=== PATIENT | male | born 1995 | race African-American/Black ===

== ENCOUNTER 2017-05-16 07:45 | Emergency (ER) | payer OTHER ==
[~2017-05-16] VITALS: Ht 177.8 cm; Wt 70.0 kg
[2017-05-16 07:51] VITALS: BP 130/66; PULSE 73; RESP 16; TEMP 98.3; O2SAT 100
--- NOTE | 2017-05-16 08:14 | PD ---
HPI Chief Complaint: Lump, Cyst, Hernia Time Seen by Provider: 07:59 Travel History International Travel<30 days: No Contact w/Intl Traveler<30days: No Traveled to known affect area: No History of Present Illness HPI 21-year-old -English male presents emergency department with recurrent nontender hernia to the left inguinal region. Patient states he has had approximately 3 years. He states it has gotten a little bigger in the last few months. He denies pain, and has always been able to reduce it without difficulty. He has noticed that it is worse with heavy lifting. Currently is asymptomatic. He denies testicular pain, or pain into the leg. He denies changes in urine, Or difficulty having sex. He currently has no insurance, but felt he should have it checked out. He has no known drug allergies. [facility] Social History Alcohol Use: Yes Tobacco Use: No Substance Use: No Allergies-Medications (Allergen,Severity, Reaction): Coded Allergies: No Known Allergies (Unverified , 05/16/17) Review of Systems Except as stated in HPI: all other systems reviewed are Neg General / Constitutional: No: Fever Eyes: No: Visual changes HENT: No: Headaches Cardiovascular: No: Chest Pain or Discomfort Respiratory: No: Shortness of Breath Gastrointestinal: Positive: Other (Hernia. See present illness.), No: Abdominal Pain Genitourinary: No: Dysuria Musculoskeletal: No: Pain Skin: No Rash Neurologic: No: Weakness Psychiatric: No: Depression Endocrine: No: Polydipsia Hematologic/Lymphatic: No: Easy Bruising Physical Exam Narrative GENERAL: Patient is in no acute distress SKIN: Warm and dry. Normal color. Normal turgor. No rash. HEAD: Atraumatic. Normocephalic. EYES: Pupils equal and round. No scleral icterus. No injection or drainage. ENT: No nasal bleeding or discharge. Mucous membranes pink and moist. NECK: Trachea midline. No JVD. CARDIOVASCULAR: Regular rate and rhythm. RESPIRATORY: No accessory muscle use. Clear to auscultation. Breath sounds equal bilaterally. GASTROINTESTINAL: Abdomen soft, non-tender, nondistended. Hepatic and splenic margins not palpable. Patient has obvious left-sided inguinal hernia which is nontender and reducible without difficulty. It does not extend into the scrotum. He has no testicular pain. MUSCULOSKELETAL: Extremities without clubbing, cyanosis, or edema. No obvious deformities. NEUROLOGICAL: Awake and alert. No obvious cranial nerve deficits. Motor grossly within normal limits. Five out of 5 muscle strength in the arms and legs. Normal speech. PSYCHIATRIC: Appropriate mood and affect; insight and judgment normal. Data Data Last Documented VS Vital Signs Date Time Temp Pulse Resp B/P (MAP) Pulse Ox O2 Delivery O2 Flow Rate FiO2 05/16/17 07:51 98.3 73 16 130/66 (87) 100 MDM Medical Decision Making Medical Screen Exam Complete: Yes Emergency Medical Condition: No Differential Diagnosis Left inguinal hernia. Need for surgery. Medical clearance. Narrative Course A medical screening exam was performed: At the time of evaluation the presenting medical condition was determined not to be of an emergent nature. The patient was given the option of receiving additional care, but declined. Patient was given options for additional community resources from which to obtain care. The Patient Has Been advised to seek medical attention for their presenting complaint. The patient has been advised to return to the ER at any time if an emergent condition develops. Condition: Stable Johnnie Carter May 16, 2017 08:14
== END 2017-05-16 09:11 | disposition left against medical advice (07) ==
LOC: NEPD 07:45
DX: K40.91 Unilateral inguinal hernia, without obstruction or gangrene, recurrent (principal)
CPT/HCPCS: 99281

== ENCOUNTER 2017-05-20 21:28 | Emergency (ER) | payer OTHER ==
[~2017-05-20] VITALS: Ht 177.8 cm; Wt 72.0 kg
[2017-05-20 22:27] VITALS: BP 142/65; PULSE 91; RESP 16; TEMP 98.5; O2SAT 100
[2017-05-21] MEDS ORDERED: IBUP1TAB7 PO (09:18)
[2017-05-21] MEDS ORDERED: MAPA500T13 PO (09:18)
[2017-05-21] MEDS ORDERED: CYCL10TA PO (09:18)
[2017-05-21] MEDS ORDERED: CIPR-9 PO (10:28)
== END 2017-05-20 23:59 | disposition left against medical advice (07) ==
LOC: NED 21:28
DX: Z53.21 Procedure and treatment not carried out due to patient leaving prior to being seen by health care provider (principal)
CPT/HCPCS: 99281

== ENCOUNTER 2017-05-21 07:42 | Emergency (ER) | payer OTHER ==
[~2017-05-21] VITALS: Ht 177.8 cm; Wt 74.0 kg
[2017-05-21 07:48] VITALS: BP 120/62; PULSE 72; RESP 16; TEMP 98.4; O2SAT 100
[2017-05-21] MEDS ORDERED: KETOROLAC TROMETHAMINE 60 MG/2 ML (IM) VIAL IM ONE (08:00)
[2017-05-21] MEDS ORDERED: ORPHENADRINE INJ 60 MG/2 ML AMP IM ONE (08:00)
--- NOTE | 2017-05-21 08:05 | PD ---
HPI Chief Complaint: Back/ Neck Pain or Injury Time Seen by Provider: 07:54 Travel History International Travel<30 days: No Contact w/Intl Traveler<30days: No Traveled to known affect area: No History of Present Illness HPI 21-year-old male presents emergency department with worsening lower back pain for the past 2 days. 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 Pain is progressively worsened over the past 24 hours. It is spasmodic in nature, with reported pain down both legs if he walks too long. He denies fever, chills, cough, nausea vomiting or diarrhea. Patient denies urinary symptoms. Patient has not tried taking anything for it or using heat or ice. Pain is currently 8 out of 10 and worse with movement. He has no known drug allergies PFSH Past Medical History Diminished Hearing: No Social History Alcohol Use: No Tobacco Use: Yes Substance Use: No Allergies-Medications (Allergen,Severity, Reaction): Coded Allergies: No Known Allergies (Unverified , 05/21/17) Reported Meds & Prescriptions Reported Meds & Active Scripts Active Mapap Extra Strength (Acetaminophen) 500 Mg Tab 1,000 Mg PO Q6-8HRS PRN Flexeril (Cyclobenzaprine HCl) 10 Mg Tab 10 Mg PO TID Ibuprofen 800 Mg Tab 800 Mg PO Q8H PRN Review of Systems Except as stated in HPI: all other systems reviewed are Neg General / Constitutional: No: Fever Eyes: No: Visual changes HENT: No: Headaches Cardiovascular: No: Chest Pain or Discomfort Respiratory: No: Shortness of Breath Gastrointestinal: No: Abdominal Pain Genitourinary: No: Dysuria Musculoskeletal: Positive: Myalgias, Limited ROM, Pain (See history of present illness) Skin: No Rash Neurologic: No: Weakness Psychiatric: No: Depression Endocrine: No: Polydipsia Hematologic/Lymphatic: No: Easy Bruising Physical Exam Narrative GENERAL: Patient appears in mild to moderate distress. He is ambulatory to the room SKIN: Warm and dry. Normal color. Normal turgor. No rash HEAD: Atraumatic. Normocephalic. EYES: Pupils equal and round. No scleral icterus. No injection or drainage. ENT: No nasal bleeding or discharge. Mucous membranes pink and moist. Pharynx is clear. Airways patent. NECK: Trachea midline. Supple and nontender. CARDIOVASCULAR: Regular rate and rhythm. RESPIRATORY: No accessory muscle use. Clear to auscultation. Breath sounds equal bilaterally. GASTROINTESTINAL: Abdomen soft, non-tender, nondistended. Hepatic and splenic margins not palpable. Patient is a known right sided inguinal hernia which is reducible per MUSCULOSKELETAL: Extremities without clubbing, cyanosis, or edema. No obvious deformities. Patient has palpable muscle spasms along the lumbar spine without specific bony tenderness or step-off. Palpation of the soft tissues of the lumbar spine reproduce symptoms. Patient has negative straight leg raise pain bilaterally. Deep tendon reflexes are intact bilaterally. NEUROLOGICAL: Awake and alert. No obvious cranial nerve deficits. Motor grossly within normal limits. Five out of 5 muscle strength in the arms and legs. Normal speech. PSYCHIATRIC: Appropriate mood and affect; insight and judgment normal. Data Data Last Documented VS Vital Signs Date Time Temp Pulse Resp B/P (MAP) Pulse Ox O2 Delivery O2 Flow Rate FiO2 05/21/17 07:48 98.4 72 16 120/62 (81) 100 Orders Orders Orphenadrine Inj (Norflex Inj) (05/21/17 08:00) Ketorolac Inj (Toradol Inj) (05/21/17 08:00) Spine, Lumbar Comp W/Obliq (05/21/17 07:59) Urinalysis - C+S If Indicated (05/21/17 07:59) Urine Culture (05/21/17 10:00) Labs Laboratory Tests Test 05/21/17 10:00 Urine Color YELLOW Urine Turbidity CLEAR Urine pH 6.5 Urine Specific [place] 1.030 Urine Protein 30 mg/dL Urine Glucose (UA) NEG mg/dL Urine Ketones NEG mg/dL Urine Occult Blood NEG Urine Nitrite NEG Urine Bilirubin NEG Urine Urobilinogen LESS THAN 2.0 MG/DL Urine Leukocyte Esterase SMALL Urine RBC 1 /hpf Urine WBC 8 /hpf Urine Squamous Epithelial Cells <1 /hpf Urine Mucus FEW /lpf Microscopic Urinalysis Comment CULTURE INDICATED MDM Medical Decision Making Medical Screen Exam Complete: Yes Emergency Medical Condition: Yes Medical Record Reviewed: Yes Differential Diagnosis Lumbago. Muscle spasm. Sciatica. Narrative Course Urinalysis is obtained. X-rays of the lumbar spine ordered. Patient is given 60 mg Norflex IM as well as 60 mg Toradol IM. X-ray show: 1. Mild disc space narrowing L5-S1. 2. Otherwise, unremarkable exam for patient's age. Urinalysis showed probable urinary tract infection and urine culture is placed. Patient is treated with ciprofloxacin 500 mg twice daily for 10 days Patient also given ibuprofen 800 mg 3 times daily #60. Patient also given Mapap 500 mg 2 tabs every 6 hours as needed #60. Patient also given Flexeril 10 mg up to 3 times daily #15 Work note was given for the next 2 days. Patient should follow-up if symptoms do not improve or worsen the next several days. Diagnosis Primary Impression: Lumbago with sciatica, unspecified side Qualified Codes: M54.42 - Lumbago with sciatica, left side; M54.41 - Lumbago with sciatica, right side Referrals: [facility] Patient Instructions: General Instructions Departure Forms: Work Release Enter return to work date: May 24, 2017 Additional Instructions: Patient is given 60 mg Norflex IM as well as 60 mg Toradol IM. X-ray show: 1. Mild disc space narrowing L5-S1. 2. Otherwise, unremarkable exam for patient's age. Urinalysis showed probable urinary tract infection and urine culture is placed. Patient is treated with ciprofloxacin 500 mg twice daily for 10 days Patient also given ibuprofen 800 mg 3 times daily #60. Patient also given Mapap 500 mg 2 tabs every 6 hours as needed #60. Patient also given Flexeril 10 mg up to 3 times daily #15 Work note was given for the next 2 days. Patient should follow-up if symptoms do not improve or worsen the next several days. Med/Other Pt SpecificInfo: Prescription(s) given Scripts Ciprofloxacin (Cipro) 500 Mg Tab 500 MG PO BID for Infection for 10 Days, #20 TAB 0 Refills Prov: Garry Romeo MD 05/21/17 Acetaminophen (Mapap Extra Strength) 500 Mg Tab 1000 MG PO Q6-8hrs Y for PAIN, #60 TAB 0 Refills Prov: Garry Romeo MD 05/21/17 Cyclobenzaprine (Flexeril) 10 Mg Tab 10 MG PO TID for Muscle Spasm, #15 TAB 0 Refills Prov: Garry Romeo MD 05/21/17 Ibuprofen (Ibuprofen) 800 Mg Tab 800 MG PO Q8H Y for Pain/Inflammation, #60 TAB 0 Refills Prov: Garry Romeo MD 05/21/17 Disposition: 01 DISCHARGE HOME Condition: Johnnie Torres May 21, 2017 08:05
--- NOTE | 2017-05-21 08:52 | RADRPT ---
EXAM DATE/TIME: 05/21/2017 08:33 [place] COMPARISON: No previous studies available for comparison. INDICATIONS : Middle-right lumbar pain increasing over 2 weeks. No known acute injury. MEDICAL HISTORY : None. SURGICAL HISTORY : None. ENCOUNTER: Initial ACUITY: 2 weeks PAIN SCORE: 6/10 LOCATION: Right lumbar spine FINDINGS: There are five non-rib bearing vertebral bodies. The vertebral bodies are in normal alignment withou t evidence of subluxation or scoliosis. There is mild disc space narrowing at L5-S1. The posterior el ements are intact without evidence of spondylolysis. The pedicles are intact. Bony mineralization i s normal. No fracture is identified. CONCLUSION: 1. Mild disc space narrowing L5-S1. 2. Otherwise, unremarkable exam for patient's age. Keshawn Springer MD on May 21, 2017 at 8:50 Board Certified Radiologist. This report was verified electronically.
[2017-05-21] MEDS ORDERED: IBUP1TAB7 PO (09:18)
[2017-05-21] MEDS ORDERED: MAPA500T13 PO (09:18)
[2017-05-21] MEDS ORDERED: CYCL10TA PO (09:18)
[2017-05-21 10:22] LABS: BILIRUBIN, URINE NEG (NEG); BLOOD, URINE NEG (NEG); GLUCOSE,URINE NEG (NEG); KETONE, URINE NEG (NEG); MUCUS URINE FEW /lpf (OCC); NITRITE,URINE NEG (NEG); PH, URINE 6.5 (5.0-8.5); SQUAMOUS EPITHELIAL CELL URINE <1 /hpf (0-5); URINE COLOR YELLOW (YELLW/STRAW); URINE LEUKOCYTE ESTERASE SMALL (NEG)
[2017-05-21] MEDS ORDERED: CIPR-9 PO (10:28)
== END 2017-05-21 10:48 | disposition home or self-care (01) ==
LOC: NEPD 07:42
DX: M54.41 Lumbago with sciatica, right side (principal); M54.42 Lumbago with sciatica, left side; Z72.0 Tobacco use
CPT/HCPCS: 72110; 81001; 87086; 96372; 99283; J1885; J2360